=== PATIENT | female | born 1985 | race Caucasian/White ===

== ENCOUNTER → 2016-12-31 | Outpatient (REF) | LOC: WSOH 16:25 | DX: Z01.89 Encounter for other specified special examinations (principal) ==

== ENCOUNTER 2017-06-08 13:39 | Emergency (ER) | payer BC ==
[~2017-06-08] VITALS: Ht 165.1 cm; Wt 90.9 kg
[2017-06-08 13:48] VITALS: BP 157/84; PULSE 91; TEMP 98.4
== END 2017-06-08 14:59 | disposition left against medical advice (07) ==
LOC: COL.ER 13:39
DX: S61.250A Open bite of right index finger without damage to nail, initial encounter (principal); W53.11XA Bitten by rat, initial encounter